=== PATIENT | male | born 1990 | race Caucasian/White ===

== ENCOUNTER 2024-09-26 09:38 | Emergency (ER) | payer BC ==
[2024-09-26] MEDS ORDERED: Ketorolac 30 MG/ML SDV IM ONE (09:42)
[2024-09-26] MEDS: Ketorolac 30 MG/ML SDV IM ONE (09:57)
[2024-09-26] MEDS: Acetaminophen 500 MG Tab PO ONE (09:58)
[2024-09-26] MEDS: Dexamethasone 4 MG Tab PO ONE (11:12)
== END 2024-09-26 11:18 | disposition home or self-care (01) ==
LOC: MW.ED 09:38
DX: S50.02XA Contusion of left elbow, initial encounter (principal); Z79.899 Other long term (current) drug therapy; W22.8XXA Striking against or struck by other objects, initial encounter; Z99.0 Dependence on aspirator; Z92.89 Personal history of other medical treatment
CPT/HCPCS: 73080; 96372; 99283; A9270; J1885; J8540